=== PATIENT | male | born 1990 | race Caucasian/White ===

== ENCOUNTER 2016-10-15 10:17 | Emergency (ER) | payer BC ==
--- NOTE | ~2016-10-15 | CR2 ---
[facility]. [facility] A Service of [facility] & [facility] RADIOLOGY TEXT RESULTS PATIENT: FREDA LOUIE LOCATION: SED : [birth year] UNIT #: [id number] AGE: [address]: Nadia Correa MD SEX: M ORDER DR: [id number] [place] [id number] MR#: [id number] Acc #: [id number] NAME: FREDA LOUIE : 1990 SEX: M STUDY DATE/TIME: 10/15/2016 11:55 UNIT: SED ROOM: STUDY DESCRIPTION: CR Abdomen Acute Series Attending Physician: Nadia Correa M.D. Ordering Physician: Nadia Correa M.D. Primary Care Physician: Primary Care Physician No MEDICAL IMAGING REPORT This report is preliminary unless electronic signature is present. EXAM Acute abdominal series 10/15/2016 HISTORY Abdominal pain, began last night after bowel movement, abdomen pain across abdomen FINDINGS AP radiograph of the chest presented with supine and upright radiographs of the abdomen and pelvis. Heart and mediastinum normal in size and contour. Lung volumes moderate. No evidence of acute pulmonary disease, pleural effusion or pneumothorax. No suspicious nodule. Calcified granulomata in the left infrahilar region. The bowel gas pattern is normal. No free air. Where visible, the solid organ contours are unremarkable. No acute appearing bony abnormality. There is mild levoscoliosis centered at the thoracolumbar junction. Dictated by... Rich Vee M.D. THIS IS AN ELECTRONICALLY VERIFIED REPORT Rich Vee M.D. at 10/16/2016 7:09 PM COLBY/nahum TD: 10/15/2016 21:24 JOB #: [id number] MEDICAL IMAGING REPORT Page 1 of 1
[~2016-10-15 10:17] MED LIST: ALLEVE; ATARAX PO; BACTRIM DS TABL1 TA1 PO; BACTRIM DS TABL1 TA2 PO; COUGH SYRU100 MG/5 M PO; DICLOFENAC PO; EC-NAPROSYN500 MG PO; FIORICET 50-321 EACH PO; FLEXERIL PO; KEFLEX500 M1 PO; KEFLEX500 MG PO; MEDROL4 MG/DOSE- PO; NO MEDICATIONS; PHENERGAN25 MG PO; TRAMADOL HCL50 M1 PO; TYLENOL #3 PO; ULTRAM PO; VICODIN 5/1 TAB 5/50 PO
[2016-10-15 12:18] LABS: URINE SOURCE CLEAN CATCH
[2016-10-15 12:23] LABS: BASOPHIL% 0.3 % (0-2.5); DIFF IND NO; EOSINOPHIL# 0.2 X10e3 (0-0.7); EOSINOPHIL% 2.2 % (0.0-7.0); HEMOGLOBIN 15.8 gm/dL (13.0-16.0); LYMPHOCYTE# 2.1 X10e3 (1.0-3.5); LYMPHOCYTE% 20.9 % (17.0-45.0); MEAN CELL VOLUME 81.5 FL (83-96); MEAN CORPUSCULAR HGB CONC 34.3 g/dL (30-36); MEAN PLATELET VOLUME 8.2 FL (6.5-11.5); MONOCYTE# 0.7 X10e3 (0-1.0); MONOCYTE% 7.4 % (3.0-12.0); NEUTROPHIL# 6.9 X10e3 (1.5-7.1); NEUTROPHIL% 69.2 % (40-75); PLATELET COUNT 253 X10e3 (140-420); RED BLOOD COUNT 5.64 X10e (3.90-5.60); RED CELL DISTRIBUTION WIDTH 13.3 % (11.0-15.5); URINE BILIRUBIN NEG (NEG); URINE BLOOD TRACE-INTACT (NEG); URINE COLOR DK YELLOW; URINE GLUCOSE NEG (NORM); URINE KETONE NEG (NEG); URINE LEUKOCYTE ESTERASE TRACE (NEG); URINE NITRATE NEG (NEG); URINE PH 5.5 (5-8); URINE PROTEIN NEG (NEG); URINE SPECIFIC GRAVITY >=1.030 (1.003-1.035); URINE UROBILINOGEN 0.2 MG/DL (NORM); WHITE BLOOD COUNT 9.9 X10e3 (4.0-10.5)
[2016-10-15 12:24] LABS: MICRO INDICATED? YES; URINE APPEARANCE SL HAZY
[2016-10-15 12:25] LABS: URINE WBC 25-50 /[HPF] (0-5)
[2016-10-15 12:26] LABS: CULTURE INDICATED? YES; URINE BACTERIA NEG (NEG); URINE MUCUS PRESENT; URINE SQUAMOUS EPITHELIAL CELL OCCAS /[HPF]
[2016-10-15 12:34] LABS: AMPHETAMINE NEG (NEG); BARBITURATES NEG (NEG); BENZODIAZEPINES NEG (NEG); COCAINE NEG (NEG); MARIJUANA POS (NEG); OPIATES NEG (NEG); TRICYCLIC ANTIDEPRESSANTS NEG (NEG); U METHADONE NEG (NEG)
[2016-10-15 12:42] LABS: ALBUMIN SERUM 4.6 g/dL (3.5-5.0); BILIRUBIN, DIRECT 0.3 mg/dL (0.0-0.2); BILIRUBIN,INDIRECT 1.3 mg/dL (0.0-0.9); BILIRUBIN,TOTAL 1.6 mg/dL (0.2-2.0); CALCIUM SERUM 9.7 mg/dL (8.4-10.2); GLOM FILT RATE Estimated 104.2 mL/min (>60); POTASSIUM 4.6 mmol/L (3.5-5.1); PROTEIN TOTAL SERUM 8.1 g/dL (6.0-8.3)
== END 2016-10-15 13:15 | disposition home or self-care (01) ==
LOC: SED 10:17
PROVIDERS: Student in an Organized Health Care Education/Training Program
DX: R10.9 Unspecified abdominal pain (principal); F12.10 Cannabis abuse, uncomplicated; Z88.5 Allergy status to narcotic agent
CPT/HCPCS: 36415; 74022; 80048; 80076; 80307; 81003; 82150; 83690; 85025; 87086; 99284